=== PATIENT | female | born 1955 | race Hispanic/Latino ===

== ENCOUNTER 2018-12-03 10:50 | Inpatient (IN) | payer MEDICAID ==
[~2018-12-03] VITALS: Ht 154.9 cm; Wt 46.9 kg
[~2018-12-03 10:50] MED LIST: ALEN1TAB3 PO; ALPR-411 PO; FLUT1DIS3 IH; HYDR-4060 PO; INS7030 SQ; INSLAN SQ; LEVO75TA10 PO; METO5TAB87 PO; ONDA4TAB4 PO; PANT40TA PO; SMZ; [UNRECOGNIZED DRUG - OTHER]
[2018-12-03] MEDS ORDERED: ONDANSETRON HCL 4 MG/2 ML VIAL ONE (11:13)
[2018-12-03 11:37] LABS: ABG BASE EXCESS -20.4 mmol/L (-2.0-3.0); ABG HCO3 5.4 mmol/L (21.0-28.0); ABG OXYGEN SATURATION 97.8 % (95.0-99.0); ABG PCO2 < 15 mmHg (32-45)
[2018-12-03 11:51] LABS: BASOPHILS % (AUTO) 0.2 % (0.0-5.0); HEMATOCRIT 41.1 % (36-48); LYMPHOCYTES % (AUTO) 5.6 % (21.0-51.0); MEAN CORPUSCULAR HEMOGLOBIN 30.1 pg (27.0-33.0); MEAN CORPUSCULAR VOLUME 107.3 fL (79-99); MONOCYTES % (AUTO) 3.2 % (3.0-13.0); PLATELET COUNT (AUTO) 311 K/uL (130-400); RED BLOOD CELL COUNT(AUTO) 3.83 MIL/uL (4.00-5.50); RED CELL DISTRIBUTION WIDTH 17.5 % (11.0-15.5)
[2018-12-03] MEDS ORDERED: INSULIN HUMULIN R 100 UNIT/ML 3ML ONE (13:27)
[2018-12-03 13:28] LABS: CREATININE 1.8 mg/dL (0.5-1.5); POTASSIUM 4.9 mmol/L (3.5-5.1)
[2018-12-03] MEDS ORDERED: SODIUM CHLORIDE 0.9% 50 ML IV ONE (13:28)
[2018-12-03 13:29] LABS: ALBUMIN 2.3 g/dL (3.5-5.0); BILIRUBIN,DIRECT 0.1 mg/dL (0.0-0.3); BILIRUBIN,TOTAL 0.5 mg/dL (0.2-1.0); TOTAL PROTEIN, SERUM 6.5 g/dL (6.0-8.3)
[2018-12-03] MEDS ORDERED: INSULIN REGULAR, HUMAN 3ML 100 UNIT in SODIUM CHLORIDE 0.9% 99 ML IV PRN ×2 (17:45)
[2018-12-03] MEDS ORDERED: SODIUM BICARB 50MEQ 50ML VIAL ONE (18:13)
[2018-12-03 18:41] LABS: APPEARANCE,URINE CLOUDY (CLEAR); BILIRUBIN,URINE NEGATIVE (NEGATIVE); COLOR,URINE YELLOW (YELLOW); GLUCOSE, URINE (UA) >=1000 mg/dL (NEGATIVE); KETONES,URINE >=80 mg/dL (NEGATIVE); LEUKOCYTE ESTERASE ,URINE NEGATIVE (NEGATIVE); NITRATE,URINE NEGATIVE (NEGATIVE); OCCULT BLOOD,URINE MODERATE (NEGATIVE); PH,URINE 5.5 (5.0-8.0); PROTEIN,URINE 30 mg/dL (NEGATIVE); UROBILINOGEN,URINE 0.2 mg/dL (0.2-1.0)
[2018-12-03 18:42] LABS: CREATININE 1.4 mg/dL (0.5-1.5); POTASSIUM 3.6 mmol/L (3.5-5.1)
[2018-12-03] MEDS ORDERED: LIDOCAINE HCL-MPF 1% 2ML VIAL IJ PRN (18:45)
[2018-12-03] MEDS ORDERED: POTASSIUM CHLORIDE 20MEQ/100ML 100 ML IV PRN (18:45)
[2018-12-03 18:50] LABS: BACTERIA,URINE Rare /HPF (None Seen); RBC,URINE 0-1 /HPF (0-1); WBC,URINE 0-1 /HPF (0-1); YEAST,URINE BUDDING Moderate /HPF (None Seen)
[2018-12-03 18:51] LABS: SQUAMOUS EPITHELIAL CELL,UR Rare /HPF (0-2)
[2018-12-03] MEDS ORDERED: SODIUM BICARB 8.4% 50ML SYRING 150 MEQ in DEXTROSE 5%-WATER 1,000 ML IV SCH (19:00)
[2018-12-03] MEDS ORDERED: CEFTRIAXONE SODIUM 1 GM IVP SCH (20:00)
[2018-12-03 22:41] LABS: CREATININE 1.3 mg/dL (0.5-1.5); MAGNESIUM 1.8 mg/dL (1.80-2.40)
[2018-12-04 04:02] LABS: MAGNESIUM 1.7 mg/dL (1.80-2.40)
[2018-12-04 04:10] LABS: POTASSIUM 2.9 mmol/L (3.5-5.1)
[2018-12-04] MEDS ORDERED: POTASSIUM CHLORIDE 20MEQ/100ML 100 ML IV ONE ×2 (07:42→12:51)
[2018-12-04] MEDS ORDERED: MAGNESIUM 2GM PREMIX 50ML 50 ML IV ONE (07:42)
[2018-12-04] MEDS ORDERED: LIDOCAINE HCL-MPF 1% 2ML VIAL ONE (07:43)
[2018-12-04 07:49] LABS: BASOPHILS % (AUTO) 0.6 % (0.0-5.0); HEMATOCRIT 33.5 % (36-48); LYMPHOCYTES % (AUTO) 5.6 % (21.0-51.0); MEAN CORPUSCULAR HEMOGLOBIN 29.9 pg (27.0-33.0); MEAN CORPUSCULAR HGB CONC 32.4 g/dL (32.0-36.0); MEAN CORPUSCULAR VOLUME 92.3 fL (79-99); MONOCYTES % (AUTO) 3.7 % (3.0-13.0); NEUTROPHILS % (AUTO) 90.1 % (40.0-77.0); PLATELET COUNT (AUTO) 269 K/uL (130-400); RED BLOOD CELL COUNT(AUTO) 3.63 MIL/uL (4.00-5.50); RED CELL DISTRIBUTION WIDTH 15.7 % (11.0-15.5)
[2018-12-04 07:58] LABS: CREATININE 0.9 mg/dL (0.5-1.5); POTASSIUM 3.6 mmol/L (3.5-5.1)
[2018-12-04 08:04] LABS: WHITE BLOOD COUNT (AUTO) 33.1 K/uL (4.8-10.8)
[2018-12-04 08:05] LABS: ABG BASE EXCESS 7.9 mmol/L (-2.0-3.0); ABG HCO3 32.7 mmol/L (21.0-28.0); ABG OXYGEN SATURATION 96.5 % (95.0-99.0); ABG PCO2 46 mmHg (32-45)
[2018-12-04 08:38] LABS: BAND NEUTROPHILS % (MANUAL) 5 % (0-2); LYMPHOCYTES % (MANUAL) 7 % (22-44); MONOCYTES % (MANUAL) 3 % (2-9); SEGMENTED NEUTROPHILS % 85 % (40-70)
[2018-12-04 08:39] LABS: MAN.DIFF COMMENT-IMPRESSION MANUAL DIFFERENTIAL
[2018-12-04 08:42] LABS: PLATELET MORPHOLOGY COMMENT ADEQUATE
[2018-12-04] MEDS ORDERED: NITROGLYCERIN 0.4 MG SL TAB SL PRN (09:45)
[2018-12-04] MEDS ORDERED: ZOLPIDEM TARTRATE 5 MG TAB PO PRN (09:45)
[2018-12-04] MEDS ORDERED: HYDRALAZINE HCL 20 MG/ML VIAL IV PRN (09:45)
[2018-12-04] MEDS ORDERED: MAG HYDROX/AL HYDROX/SIMETH ES 30 ML SUSP UDCUP PO PRN (09:45)
[2018-12-04] MEDS ORDERED: LACTULOSE 20 GM/30 ML UDCUP PO PRN (09:45)
[2018-12-04] MEDS ORDERED: GUAIFENESIN-DM 200/20 MG 10 ML PO PRN (09:45)
[2018-12-04] MEDS ORDERED: ACETAMINOPHEN 325 MG TAB PO PRN ×2 (09:45)
[2018-12-04] MEDS ORDERED: ONDANSETRON HCL 4 MG/2 ML VIAL IV PRN (09:45)
[2018-12-04] MEDS ORDERED: DIPHENHYDRAMINE HCL 25 MG CAPSULE PO PRN (09:45)
[2018-12-04] MEDS ORDERED: BENZONATATE 100 MG CAPSULE PO PRN (09:45)
--- NOTE | 2018-12-04 10:46 | NUR ---
DCP Sw met with pt who lives with her son Giuseppe,. Sylvester Mancia is ER contact [phone]. Pt has provider 4 hrs daily was recently evaluated for increase in hours. Pt has cane and shower chair. Has PCP and uses [facility]. Pt refuses to consider SNF or placement. DCP is home with son Addendum: 12/04/18 at 1048 by JENNA WILSON SS Amended: Links added.
[2018-12-04] MEDS ORDERED: IPRATROPIUM 0.5 MG/2.5 ML INH IH ONE (11:14)
[2018-12-04] MEDS ORDERED: ALBUTEROL SULFATE 0.083% 2.5 MG/3 ML INH IH ONE (11:14)
[2018-12-04] MEDS: ALBUTEROL SULFATE 0.083% 2.5 MG/3 ML INH IH SCH ×3 (11:23→23:35)
[2018-12-04] MEDS: IPRATROPIUM 0.5 MG/2.5 ML INH IH SCH ×3 (11:23→23:35)
[2018-12-04] MEDS ORDERED: INSULIN HUMULIN R 100 UNIT/ML 3ML SQ SCH (11:30)
[2018-12-04] MEDS ORDERED: INSULIN HUMULIN R 100 UNIT/ML 3ML ONE (12:53)
[2018-12-04 13:46] VITALS: BP 182/94
[2018-12-04] MEDS ORDERED: INSLAN SQ (13:54)
[2018-12-04] MEDS ORDERED: LISI-617 PO (14:02)
[2018-12-04] MEDS ORDERED: LEVO50TA11 PO (14:05)
[2018-12-04] MEDS ORDERED: ONDA8TAB5 PO (14:05)
[2018-12-04] MEDS: POTASSIUM CHLORIDE 20 MEQ ERTAB PO PRN (16:10)
[2018-12-04] MEDS: 1/2 NORMAL SALINE 1,000 ML IV SCH (16:12)
[2018-12-04] MEDS ORDERED: ALPR0.255 PO (16:16)
[2018-12-04] MEDS: POTASSIUM CHLORIDE 10% ELIXIR 20 MEQ/15 ML UDCUP PO PRN (16:19)
[2018-12-04 16:43] VITALS: BP 127/58
[2018-12-04] MEDS: INSULIN HUMULIN R 100 UNIT/ML 3ML SQ SCH ×2 (16:51→20:27)
[2018-12-04 19:09] VITALS: BP 133/75
--- NOTE | 2018-12-04 19:32 | NUR ---
Dr. Melendez in house for rounds with pt. MD aware of yesterday's lactic acid results, and today's WBC results. Notified MD of pt's cough and production of thick brown sputum, as well as refusal of scheduled nebulizer treatment. New orders entered.
[2018-12-04] MEDS: ZOSYN 3.375GM+NS 50ML 50 ML IV SCH (20:01)
[2018-12-04] MEDS: INSULIN GLARGINE 100 UNITS/ML 10 ML VIAL SQ SCH (21:23)
[2018-12-04] MEDS: MORPHINE SULFATE 2 MG/ML 1ML SYG IV PRN (23:14)
[2018-12-04] MEDS ORDERED: SODIUM CHLORIDE 3% FOR INHALATION 4 ML/AMP VIAL.NEB IH ONE (23:33)
[2018-12-04 23:40] VITALS: BP 143/69
[2018-12-05] VITALS (7 sets, daily range): BP systolic 115–152; BP diastolic 55–79
[2018-12-05] MEDS: ZOSYN 3.375GM+NS 50ML 50 ML IV SCH ×3 (04:23→21:07)
[2018-12-05] MEDS: 1/2 NORMAL SALINE 1,000 ML IV SCH ×2 (05:21→23:34)
[2018-12-05 05:28] LABS: HEMOGLOBIN A1C 13.4 % (4.0-6.0)
[2018-12-05 05:31] LABS: BASOPHILS % (AUTO) 0.2 % (0.0-5.0); EOSINOPHILS % (AUTO) 0.1 % (0.0-8.0); HEMATOCRIT 30.4 % (36-48); LYMPHOCYTES % (AUTO) 8.8 % (21.0-51.0); MEAN CORPUSCULAR HEMOGLOBIN 30.2 pg (27.0-33.0); MEAN CORPUSCULAR HGB CONC 32.5 g/dL (32.0-36.0); MONOCYTES % (AUTO) 3.6 % (3.0-13.0); NEUTROPHILS % (AUTO) 87.3 % (40.0-77.0); PLATELET COUNT (AUTO) 234 K/uL (130-400); RED BLOOD CELL COUNT(AUTO) 3.27 MIL/uL (4.00-5.50); RED CELL DISTRIBUTION WIDTH 15.4 % (11.0-15.5); WHITE BLOOD COUNT (AUTO) 21.9 K/uL (4.8-10.8)
[2018-12-05 05:41] LABS: INR 0.98 (0.85-1.15); PARTIAL THROMBOPLASTIN TIME 24.1 SEC (26.3-35.5); PROTHROMBIN TIME 10.3 SEC (9.6-11.6)
[2018-12-05 05:45] LABS: ALBUMIN 1.7 g/dL (3.5-5.0); BILIRUBIN,TOTAL 0.3 mg/dL (0.2-1.0); CREATININE 0.7 mg/dL (0.5-1.5); MAGNESIUM 2.1 mg/dL (1.80-2.40); PHOSPHORUS 1.2 mg/dL (2.5-4.9); POTASSIUM 3.2 mmol/L (3.5-5.1); THYROID STIMULATING HORMONE 2.65 uIU/mL (0.36-3.74); TOTAL PROTEIN, SERUM 5.1 g/dL (6.0-8.3)
[2018-12-05] MEDS: INSULIN HUMULIN R 100 UNIT/ML 3ML SQ SCH ×4 (05:45→21:17)
[2018-12-05 05:59] LABS: B-TYPE NATRIURETIC PEPTIDE 173 pg/mL (0-100)
[2018-12-05] MEDS ORDERED: SODIUM CHLORIDE 3% FOR INHALATION 4 ML/AMP VIAL.NEB IH ONE (06:07)
[2018-12-05] MEDS: ALBUTEROL SULFATE 0.083% 2.5 MG/3 ML INH IH SCH ×3 (06:18→18:46)
[2018-12-05] MEDS: IPRATROPIUM 0.5 MG/2.5 ML INH IH SCH ×3 (06:19→18:46)
[2018-12-05 08:28] LABS: ABG BASE EXCESS 7.1 mmol/L (-2.0-3.0); ABG HCO3 31.5 mmol/L (21.0-28.0); ABG OXYGEN SATURATION 93.1 % (95.0-99.0); ABG PCO2 44 mmHg (32-45)
--- NOTE | 2018-12-05 09:00 | NUR ---
FINISHED CLOTH EXAMINER AWARE OF BG'S
[2018-12-05] MEDS: ENOXAPARIN SODIUM 30 MG/0.3 ML SQ SCH (09:34)
[2018-12-05] MEDS: PANTOPRAZOLE SODIUM 40 MG TABLET.DR PO SCH (09:34)
--- NOTE | 2018-12-05 13:45 | NUR ---
C consult Patient assessed as ordered. Patient has blisters to right forearm; 2-3 fluid filled and 3-4 others that have already spontaneously ruptured and are dry. [facility] recommendations submitted.
--- NOTE | 2018-12-05 16:34 | NUR ---
Nutrition intervention: Nutrition notification for non-complaint with diet. Pt admitted for DKA, blood sugars greater than 600 in ED. Pt reports a 6 lb wt loss in the past month d/t decreased intake after feeling ill. Pt with protein calorie malnutrition. LBM 12/04. alb 1.7. Recommendations: Continue current diet therapy. Provide nutrition supplementation BID for added calorie and protein intake. Addendum: 12/05/18 at [address] Amended: Links added.
--- NOTE | 2018-12-05 17:00 | NUR ---
WOUND CARE PROVIDED PICTURES TAKEN
--- NOTE | 2018-12-05 17:00 | NUR ---
SENIOR PUBLICATIONS SPECIALIST , SHABBIR AWARE OF SPUTUM CULTURE
--- NOTE | 2018-12-05 18:00 | NUR ---
D/C RAJESH OF [facility] D/C [facility] CATHETER PT PENDING TO VOID
[2018-12-05] MEDS: NYSTATIN 100000 UNIT/ML 5ML UDCUP PO SCH (21:08)
[2018-12-05] MEDS: INSULIN GLARGINE 100 UNITS/ML 10 ML VIAL SQ SCH (21:15)
[2018-12-05] MEDS: MORPHINE SULFATE 2 MG/ML 1ML SYG IV PRN (22:48)
[2018-12-06 03:15] VITALS: BP 138/78
[2018-12-06 04:59] LABS: HEMATOCRIT 30.2 % (36-48); MEAN CORPUSCULAR HEMOGLOBIN 30.6 pg (27.0-33.0); MEAN CORPUSCULAR HGB CONC 32.9 g/dL (32.0-36.0); MEAN CORPUSCULAR VOLUME 93.2 fL (79-99); PLATELET COUNT (AUTO) 203 K/uL (130-400); RED BLOOD CELL COUNT(AUTO) 3.24 MIL/uL (4.00-5.50); RED CELL DISTRIBUTION WIDTH 15.7 % (11.0-15.5); WHITE BLOOD COUNT (AUTO) 8.2 K/uL (4.8-10.8)
[2018-12-06] MEDS: ZOSYN 3.375GM+NS 50ML 50 ML IV SCH ×3 (05:05→19:40)
[2018-12-06 05:25] LABS: CREATININE 0.6 mg/dL (0.5-1.5)
[2018-12-06 05:31] LABS: POTASSIUM 2.9 mmol/L (3.5-5.1)
[2018-12-06] MEDS: POTASSIUM CHLORIDE 10% ELIXIR 20 MEQ/15 ML UDCUP PO PRN (05:57)
[2018-12-06] MEDS: IPRATROPIUM 0.5 MG/2.5 ML INH IH SCH ×5 (06:00→23:10)
[2018-12-06] MEDS: ALBUTEROL SULFATE 0.083% 2.5 MG/3 ML INH IH SCH ×5 (06:00→23:10)
[2018-12-06] MEDS: INSULIN HUMULIN R 100 UNIT/ML 3ML SQ SCH ×4 (06:00→20:22)
[2018-12-06 08:19] VITALS: BP 161/74
[2018-12-06] MEDS: PANTOPRAZOLE SODIUM 40 MG TABLET.DR PO SCH (10:30)
[2018-12-06] MEDS: ENOXAPARIN SODIUM 30 MG/0.3 ML SQ SCH (10:30)
[2018-12-06] MEDS: NYSTATIN 100000 UNIT/ML 5ML UDCUP PO SCH ×4 (10:30→19:40)
[2018-12-06 11:17] VITALS: BP 105/61
[2018-12-06 16:32] VITALS: BP 132/64
--- NOTE | 2018-12-06 18:55 | NUR ---
CM NOTE cm attempted to speak to pt regarding d/c planning. Pt asked for CM to return at another time. CM to f/u in AM.
[2018-12-06 19:00] VITALS: BP 106/62
[2018-12-06] MEDS: 1/2 NORMAL SALINE 1,000 ML IV SCH (19:41)
[2018-12-06] MEDS: INSULIN GLARGINE 100 UNITS/ML 10 ML VIAL SQ SCH (20:29)
[2018-12-06] MEDS ORDERED: ALPRAZOLAM 0.25 MG TABLET PO PRN (20:30)
[2018-12-06] MEDS ORDERED: ALPRAZOLAM 0.25 MG TABLET ONE (20:32)
[2018-12-06 23:00] VITALS: BP 112/60
[2018-12-07 03:05] VITALS: BP 111/60
[2018-12-07] MEDS: MORPHINE SULFATE 2 MG/ML 1ML SYG IV PRN (03:38)
[2018-12-07] MEDS: ZOSYN 3.375GM+NS 50ML 50 ML IV SCH (04:33)
[2018-12-07 04:48] LABS: HEMATOCRIT 31.5 % (36-48); MEAN CORPUSCULAR HEMOGLOBIN 30.7 pg (27.0-33.0); MEAN CORPUSCULAR HGB CONC 32.8 g/dL (32.0-36.0); MEAN CORPUSCULAR VOLUME 93.4 fL (79-99); NUCLEATED RED BLOOD CELLS 0.1 % (0.0-0.19); PLATELET COUNT (AUTO) 169 K/uL (130-400); RED BLOOD CELL COUNT(AUTO) 3.37 MIL/uL (4.00-5.50); RED CELL DISTRIBUTION WIDTH 15.6 % (11.0-15.5)
[2018-12-07 05:03] LABS: ALBUMIN 1.5 g/dL (3.5-5.0); BILIRUBIN,TOTAL 0.2 mg/dL (0.2-1.0); CREATININE 0.4 mg/dL (0.5-1.5); POTASSIUM 3.6 mmol/L (3.5-5.1); TOTAL PROTEIN, SERUM 4.8 g/dL (6.0-8.3)
[2018-12-07 05:17] LABS: INR 0.93 (0.85-1.15); PARTIAL THROMBOPLASTIN TIME 24.6 SEC (26.3-35.5); PROTHROMBIN TIME 9.8 SEC (9.6-11.6)
[2018-12-07] MEDS: INSULIN HUMULIN R 100 UNIT/ML 3ML SQ SCH ×2 (06:09→11:30)
[2018-12-07] MEDS: IPRATROPIUM 0.5 MG/2.5 ML INH IH SCH ×2 (07:04→12:35)
[2018-12-07] MEDS: ALBUTEROL SULFATE 0.083% 2.5 MG/3 ML INH IH SCH ×2 (07:04→12:35)
[2018-12-07 07:30] VITALS: BP 139/75
[2018-12-07] MEDS: NYSTATIN 100000 UNIT/ML 5ML UDCUP PO SCH (09:16)
[2018-12-07] MEDS: PANTOPRAZOLE SODIUM 40 MG TABLET.DR PO SCH (09:17)
[2018-12-07] MEDS: ENOXAPARIN SODIUM 30 MG/0.3 ML SQ SCH (09:17)
[2018-12-07] MEDS: POTASSIUM CHLORIDE 20 MEQ ERTAB PO PRN (09:30)
[2018-12-07 11:00] VITALS: BP 135/77
--- NOTE | 2018-12-07 11:32 | NUR ---
cm note met with patient and states that she has already spoken to dr Melendez today and she does not wish to go to snf for Iv antibiotic treatment. states md is aware. dc plan is back to home.
--- NOTE | 2018-12-07 13:48 | NUR ---
PATIENT DISCHARGED HOME USING TEACH BACK TECHNIQUE; RE; MAKE SURE TO BUY PRESCRIPTION OF ANTIBIOTIC GIVEN TO YOU AT DISCHARGE. FOLLOW UP WITH DR. GREER WITHIN 1 WEEK A FOLLOW UP OR A WALK IN. CALL YOUR PRIMARY DOCTOR IF SHORTNESS OF BREATH DOES NOT RESOLVE WITH REST. IF FEVERS GREATER 100.5 CALL YOUR DOCTOR. WOUND CARE; APPLY DRY 4X4 GAUZE TO YOUR RIGHT FOREARM TO PREVENT INFECTION, MAY CLEANSE WITH NORMAL SALINE APPLY 4X4S AND COVER WITH ROLLER GAUZE TWICE PER DAY AND NEEDED. CALL YOUR DOCTOR IF REDNESS, SWELLING OR DRAINAGE GETS WORSE. FOLLOW UP WITH YOUR FOOT DOCTOR FOR THE CALLUS IN YOUR RIGHT FOOT. TO PREVENT INFECTION MAKE SURE TO USE APPROPRIATE CLOTHING AND NOT BE BEAR FOOTED TO PREVENT INFECTION, AND KEEP FOOT DRY AT ALL TIMES. MAY SHOWER. PATIENT REFUSES TO SIGN REFUSAL FORM RE; PICTURES TO BE TAKEN STATES "NO WILL NOT SIGN NOTHING MY RIDE IS DOWN STAIRS." PATIENT WALKED AWAY WITH HEAVY SET FEMALE TAKING PATIENT IN WHEELCHAIR. WOUND CARE WAS DONE PRIOR TO DISCHARGE AND EXPLAINED HOW TO PROPERLY CHANGE DRESSING AND TO FOLLOW UP WITH HARDSCAPE FOREMAN RE; CALLUS TO RIGHT FOOT. PATIENT ANGRY WITH SINCE MORNING SHE REFUSED TO GO TO A SNF FOR ANTIBIOTIC THERAPY AND WOUND CARE.
== END 2018-12-07 13:45 | disposition home or self-care (01) | DRG 720 ==
LOC: EDH 10:50 → EDHIP 10:51 → 4BH 12-04 12:35
PROVIDERS: ADMIT Internal Medicine; ATTEND Internal Medicine
DX: A41.9 Sepsis, unspecified organism (principal); E43 Unspecified severe protein-calorie malnutrition; E11.10 Type 2 diabetes mellitus with ketoacidosis without coma; N17.9 Acute kidney failure, unspecified; E86.0 Dehydration; E03.9 Hypothyroidism, unspecified; E78.5 Hyperlipidemia, unspecified; I10 Essential (primary) hypertension; J44.9 Chronic obstructive pulmonary disease, unspecified; R09.02 Hypoxemia; F17.210 Nicotine dependence, cigarettes, uncomplicated; D64.9 Anemia, unspecified; E87.6 Hypokalemia; Z79.4 Long term (current) use of insulin; Z91.19 Patient's noncompliance with other medical treatment and regimen; Z86.718 Personal history of other venous thrombosis and embolism
CPT/HCPCS: 36415; 36600; 71045; 71250; 74176; 80048; 80053; 80061; 80076; 81001; 82009; 82803; 82947; 82948; 83036; 83605; 83690; 83735; 83880; 84100; 84443; 84484; 85025; 85027; 85060; 85610; 85730; 87040; 87071; 87205; 87486; 87581; 87633; 87798; 87804; 93005; 94640; 94664; 97039; 99291; G0378; J1650; J1815; J2405; J2543; J3475; J3480; J3490; J7070